=== PATIENT | female | born 2000 | race Caucasian/White ===

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

== ENCOUNTER 2021-04-25 20:32 | Emergency (ER) | payer MEDICAID, SELFPAY ==
[~2021-04-25] VITALS: Ht 160 cm; Wt 68.0 kg
[~2021-04-25 20:32] MED LIST changes: +CLIN-22 PO; +PSEU30TA36 PO
[2021-04-25 20:44] VITALS: BP_SYST 135
[2021-04-25 21:24] LABS: BILIRUBIN,URINE NEGATIVE (NEGATIVE); BLOOD, URINE NEGATIVE (NEGATIVE); CLARITY/URINE CLEAR (CLEAR); COLOR,URINE YELLOW (YELLOW); GLUCOSE,URINE NEGATIVE (NEGATIVE); KETONES,URINE NEGATIVE (NEGATIVE); LEUKOCYTE ESTERASE ,URINE NEGATIVE (NEGATIVE); NITRITE, URINE NEGATIVE (NEGATIVE); PROTEIN URINE NEGATIVE (NEGATIVE); UROBILINOGEN,URINE 0.2 (0.2-1.0)
[2021-04-25 21:26] LABS: BASOPHILS # (AUTO) 0.1 K/uL (0.0-0.2); BASOPHILS % (AUTO) 1.4 % (0.0-2.0); EOSINOPHILS # (AUTO) 0.2 K/uL (0.0-0.4); EOSINOPHILS % (AUTO) 2.9 % (0.0-4.0); HEMATOCRIT 41.6 % (36-48); HEMOGLOBIN 14.5 g/dL (12.0-16.0); LYMPHOCYTES # (AUTO) 3.3 K/uL (1.0-5.5); MEAN CORPUSCULAR HEMOGLOBIN 30 pg (27-31); MEAN CORPUSCULAR HGB CONC 35 % (32-36); MEAN CORPUSCULAR VOLUME 86 fL (79.0-98.0); MONOCYTES # (AUTO) 0.5 K/uL (0.0-1.0); MONOCYTES % (AUTO) 7.3 % (1.7-9.3); NEUTROPHILS # (AUTO) 3.3 K/uL (1.8-7.7); NEUTROPHILS % (AUTO) 44.4 % (40.0-70.0); PLATELET COUNT (AUTO) 244 K/uL (130-430); RED BLOOD CELL COUNT(AUTO) 4.86 MIL/uL (4.2-6.2); RED CELL DISTRIBUTION WIDTH 12.9 % (9.0-15.0); WHITE BLOOD COUNT (AUTO) 7.4 K/uL (4.5-11.0)
[2021-04-25 21:43] LABS: PROTHROMBIN TIME 10.6 SECS (9.5-12.5)
[2021-04-25 21:48] LABS: CALCIUM 9.5 mg/dL (8.4-11.0); CREATININE 0.86 mg/dL (0.55-1.30); POTASSIUM 3.8 mmol/L (3.5-5.1)
[2021-04-25 21:51] LABS: ALBUMIN 4.5 g/dL (3.4-4.8); TOTAL BILIRUBIN 0.4 mg/dL (0.0-1.0)
[2021-04-25 22:46] VITALS: BP_SYST 117
[2021-04-25] MEDS ORDERED: VIS25 PO (22:51)
== END 2021-04-25 23:05 | disposition home or self-care (01) ==
LOC: SED 20:32
DX: R20.2 Paresthesia of skin (principal); R42 Dizziness and giddiness; F12.90 Cannabis use, unspecified, uncomplicated; F17.210 Nicotine dependence, cigarettes, uncomplicated
CPT/HCPCS: 36415; 70450-TC; 71045; 76376; 80053; 81003; 83605; 84484; 85025; 85610-TC; 85730-TC; 93005; 99285

== ENCOUNTER 2021-07-19 10:46 | Emergency (ER) | payer MEDICAID, SELFPAY ==
[~2021-07-19] VITALS: Ht 160 cm; Wt 70.3 kg
[2021-07-19 10:46] VITALS: BP_SYST 122
[~2021-07-19 10:46] MED LIST changes: +VIS25 PO
[2021-07-19] MEDS ORDERED: IBUP-1969 PO (11:38)
[2021-07-19] MEDS ORDERED: CYCL10TA24 PO (11:38)
[2021-07-19] MEDS ORDERED: IBUPROFEN 600 MG TABLET PO ONE (11:45)
== END 2021-07-19 11:59 | disposition home or self-care (01) ==
LOC: SED 10:46
DX: S16.1XXA Strain of muscle, fascia and tendon at neck level, initial encounter (principal); X50.9XXA Other and unspecified overexertion or strenuous movements or postures, initial encounter; Y93.89 Activity, other specified; Y92.89 Other specified places as the place of occurrence of the external cause; Y99.8 Other external cause status
CPT/HCPCS: 99283

== ENCOUNTER 2022-02-04 13:38 | Emergency (ER) | payer MEDICAID ==
[~2022-02-04] VITALS: Ht 160 cm; Wt 72.6 kg
[~2022-02-04 13:38] MED LIST changes: +CYCL10TA24 PO
[2022-02-04 13:53] VITALS: BP_SYST 126
--- NOTE | 2022-02-04 14:34 | NUR ---
urine sent to lab.
[2022-02-04 15:36] LABS: BILIRUBIN,URINE NEGATIVE (NEGATIVE); BLOOD, URINE NEGATIVE (NEGATIVE); CLARITY/URINE CLEAR (CLEAR); COLOR,URINE YELLOW (YELLOW); GLUCOSE,URINE NEGATIVE (NEGATIVE); KETONES,URINE NEGATIVE (NEGATIVE); LEUKOCYTE ESTERASE ,URINE NEGATIVE (NEGATIVE); NITRITE, URINE NEGATIVE (NEGATIVE); PROTEIN URINE NEGATIVE (NEGATIVE); UROBILINOGEN,URINE 0.2 (0.2-1.0)
[2022-02-04 15:44] LABS: BASOPHILS # (AUTO) 0.1 K/uL (0.0-0.2); BASOPHILS % (AUTO) 1.2 % (0.0-2.0); EOSINOPHILS # (AUTO) 0.2 K/uL (0.0-0.4); EOSINOPHILS % (AUTO) 3.2 % (0.0-4.0); HEMATOCRIT 40.9 % (36-48); HEMOGLOBIN 14.3 g/dL (12.0-16.0); LYMPHOCYTES # (AUTO) 2.2 K/uL (1.0-5.5); LYMPHOCYTES % (AUTO) 32.9 % (20.5-51.5); MEAN CORPUSCULAR HEMOGLOBIN 30 pg (27-31); MEAN CORPUSCULAR HGB CONC 35 % (32-36); MEAN CORPUSCULAR VOLUME 86 fL (79.0-98.0); MONOCYTES # (AUTO) 0.5 K/uL (0.0-1.0); MONOCYTES % (AUTO) 7.5 % (1.7-9.3); NEUTROPHILS # (AUTO) 3.6 K/uL (1.8-7.7); NEUTROPHILS % (AUTO) 55.2 % (40.0-70.0); PLATELET COUNT (AUTO) 254 K/uL (130-430); RED BLOOD CELL COUNT(AUTO) 4.78 MIL/uL (4.2-6.2); RED CELL DISTRIBUTION WIDTH 13.3 % (9.0-15.0); WHITE BLOOD COUNT (AUTO) 6.6 K/uL (4.5-11.0)
[2022-02-04 15:56] LABS: PROTHROMBIN TIME 10.1 SECS (9.5-12.5)
[2022-02-04 16:00] LABS: ACETONE, SERUM NEGATIVE (NEGATIVE)
[2022-02-04 16:02] LABS: ANION GAP 7 (5-15); CALCIUM 9.4 mg/dL (8.4-11.0); CHLORIDE 101 mmol/L (98-107); CREATININE 0.76 mg/dL (0.55-1.30); GFR AFRICAN AMERICAN 125 mL/min (>90); GLUCOSE 91 mg/dL (70-99); POTASSIUM 3.9 mmol/L (3.5-5.1); SODIUM SERUM 138 mmol/L (136-145); UREA NITROGEN, BLOOD 11 mg/dL (8-21)
[2022-02-04 16:03] LABS: ALANINE AMINOTRANSFERASE 22 U/L (12-78); ALBUMIN 4.2 g/dL (3.4-4.8); ASPARTATE AMINOTRANSFERASE 22 U/L (10-37); TOTAL BILIRUBIN 0.4 mg/dL (0.0-1.0)
--- NOTE | 2022-02-04 16:28 | NUR ---
Patient to ER bed 08 to gown for evaluation. Side rails up.
--- NOTE | 2022-02-04 16:36 | NUR ---
Pt presents to the ER bib self CC heavy bleeding. Pt notes dizziness, nausea and dark espresso hard stools. Pt states completed depo provera 2 months ago with return of menses. Menses completed 3 days ago. Pt states large volume of blood 3 pads per hour.
--- NOTE | 2022-02-04 16:40 | NUR ---
ER at bedside examining patient.
--- NOTE | 2022-02-04 17:00 | NUR ---
Patient given written and verbal discharge instructions and verbalizes understanding. ER MD discussed with patient the results and treatment provided. Patient in stable condition. ID arm band removed. Opportunity for questions provided and answered. Medication side effect fact sheet provided.
[2022-02-04 19:07] VITALS: BP_SYST 126
== END 2022-02-04 17:00 | disposition home or self-care (01) ==
LOC: SED 13:38
DX: R53.1 Weakness (principal); N92.0 Excessive and frequent menstruation with regular cycle; R42 Dizziness and giddiness; Z79.899 Other long term (current) drug therapy
CPT/HCPCS: 36415; 80053; 81003; 81025; 82009; 83605; 85025; 85610-TC; 85730-TC; 93005; 99284

== ENCOUNTER 2022-03-13 20:17 | Emergency (ER) | payer MEDICAID ==
[~2022-03-13] VITALS: Ht 180.3 cm; Wt 72.6 kg
--- NOTE | 2022-03-13 20:50 | NUR ---
MD DR SHIELDS AT BEDSIDE
[2022-03-13 20:51] VITALS: BP_SYST 125
--- NOTE | 2022-03-13 21:02 | NUR ---
Patient triaged and placed in waiting room. VSS and patient appears in no acute distress at this time. Accompanied by MOTHER, awaiting available bed, and MD SHIELDS notified of need for MSE.
--- NOTE | 2022-03-13 21:03 | NUR ---
PT BIB MOTHER TO ER AWAKE AND ALERT. NO SOB OR DISTRESS. AMB, PERRLA. PT C/O OF SORE THROAT, BACK PAIN 4 SINCE THIS MORNING. O2 96% RA.
[2022-03-13] MEDS ORDERED: NACL 0.9% 1,000 ML IV ONE (22:00)
[2022-03-13] MEDS ORDERED: KETOROLAC TROMETHAMINE 30 MG VIAL IVP ONE (22:00)
[2022-03-13] MEDS ORDERED: ONDANSETRON HCL 4 MG/2 ML VIAL IVP ONE (22:00)
--- NOTE | 2022-03-13 22:01 | NUR ---
Patient to ER bed 04 to gown for evaluation. Side rails up.
[2022-03-13 22:10] LABS: STREPTOCOCCUS A SCREEN (RAPID) NEGATIVE (NEGATIVE)
--- NOTE | 2022-03-13 22:10 | NUR ---
Received report from MAHESH [place]; assuming care of patient at this time.
--- NOTE | 2022-03-13 22:10 | NUR ---
First contact with patient at this time. Patient A/Ox4, VSS, ambulatory, resp even and unlabored. Patient has a 20G IV in left forearm, intact with no signs of infiltration. Patient resting comfortably in bed with side rails raised. Patient talking on phone with mother at bedside. Nad noted at this time.
[2022-03-13] MEDS ORDERED: LIDVIS100 MM (22:35)
[2022-03-13] MEDS ORDERED: ONDA-8 TL (22:35)
[2022-03-13] MEDS ORDERED: IBUP-1971 PO (22:35)
--- NOTE | 2022-03-13 23:00 | NUR ---
Patient resing comfortably in bed with side rails raised. Nad noted at this time.
[2022-03-13 23:45] VITALS: BP_SYST 109
--- NOTE | 2022-03-13 23:45 | NUR ---
Patient given written and verbal discharge instructions and verbalizes understanding. ER MD discussed with patient the results and treatment provided. Patient in stable condition. ID arm band removed. IV catheter removed intact and dressing applied, no active bleeding. Rx of Ibuprofen, Lidocaine, and Zofran given. Patient educated on pain management and to follow up with PMD. Pain Scale 0/10. Opportunity for questions provided and answered. Medication side effect fact sheet provided. Patient A/Ox4, VSS, ambulatory, resp even and unlabored. Patient in stable condition and accompanied by mother at time of discharge.
== END 2022-03-13 23:45 | disposition home or self-care (01) ==
LOC: SED 20:17
DX: B34.9 Viral infection, unspecified (principal); R50.9 Fever, unspecified; M79.10 Myalgia, unspecified site; J02.9 Acute pharyngitis, unspecified; Z79.899 Other long term (current) drug therapy; Z20.822 Contact with and (suspected) exposure to COVID-19
CPT/HCPCS: 99284; 96374; 96361; 96375; 87426; 86308; 86403; 36415; 87081; 87804 ×2; J1885; J2405; J7030

== ENCOUNTER 2022-03-17 11:14 | Emergency (ER) | payer MEDICAID ==
[~2022-03-17 11:14] MED LIST changes: +IBUP-1971 PO; +LIDVIS100 MM; +ONDA-8 TL
[2022-03-17 11:20] VITALS: BP_SYST 115
--- NOTE | 2022-03-17 11:35 | NUR ---
Patient to ER bed TENT to gown for evaluation. Side rails up.
--- NOTE | 2022-03-17 11:40 | NUR ---
ER Dr.DE RIVAS at bedside examining patient.
--- NOTE | 2022-03-17 11:45 | NUR ---
Patient given written and verbal discharge instructions and verbalizes understanding. ER MD discussed with patient the results and treatment provided. Patient in stable condition. ID arm band removed. Rx of given. Patient educated on pain management and to follow up with PMD. Pain Scale 3. Opportunity for questions provided and answered. Medication side effect fact sheet provided.
== END 2022-03-17 11:45 | disposition home or self-care (01) ==
LOC: SED 11:14
DX: B34.9 Viral infection, unspecified (principal); R05.9 Cough, unspecified; J02.9 Acute pharyngitis, unspecified; M54.2 Cervicalgia; Z79.899 Other long term (current) drug therapy
CPT/HCPCS: 99281

== ENCOUNTER 2022-03-18 15:14 | Emergency (ER) | payer MEDICAID ==
--- NOTE | 2022-03-18 15:20 | NUR ---
CALLED FOR TRIAGE, UNABLE TO LOCATE PT IN WAITING ROOM
--- NOTE | 2022-03-18 15:28 | NUR ---
CALLED FOR TRIAGE, UNABLE TO LOCATE PT IN WAITING ROOM
--- NOTE | 2022-03-18 16:00 | NUR ---
CALLED FOR TRIAGE, UNABLE TO LOCATE PT IN WAITING ROOM OR FRONT OF HOSPITAL. PT LWBS
== END 2022-03-18 16:00 | disposition left against medical advice (07) ==
LOC: SED 15:14
DX: R51.9 Headache, unspecified (principal); Z53.21 Procedure and treatment not carried out due to patient leaving prior to being seen by health care provider